=== PATIENT | female | born 1975 | race Caucasian/White ===

== ENCOUNTER → 2016-06-08 | Outpatient (CLI) | payer OTHER ==
[~2016-06-08] MED LIST: ALBUTEROL MININEB NEB; AMOXICILLIN500 M1 PO; AUGMENTIN PO; BENTYL10 MG PO; BREO ELLIPTA 11 EACH INH; CARAFATE1 G PO; CLINDAMYCIN HC300 MG PO; DARVOCET-N 1001 TA1 PO; DETROL PO; FLONASE16 GM; GABAPENTIN600 MG PO; GRALISE600 MG PO; GUAIFENESIN400 M1 PO; HORIZANT600 MG PO; HYDROCODON-ACE1 EAC5 PO; HYDROCODONE/APA1 T16 PO; LEVAQUIN750 M1 PO; LIBRAX CAPSULE1 CA1 PO; LOMOTIL TABLET1 TAB; LORTAB 10-5001 EACH PO; MAG-OXIDE400 MG PO; MEDROL PO; MOBIC PO; MULTI VITAMIN1 EACH PO; ORUDIS75 M1 PO; PAROXETINE HCL40 M1 PO; PHENERGAN25 M1 DOB; PHENOL-SODIUM180 ML; PREDNISONE; PREDNISONE PO; PREVACID PO; SPIRIVA18 MCG INH; VITAMIN B122500 MCG PO; ZANAFLEX4 M1 PO; ZITHROMAX PO; ZYRTEC PO; mucinex PO
--- NOTE | ~2016-06-08 | US136 ---
[facility] A Service of [facility] & [facility] RADIOLOGY TEXT RESULTS PATIENT: ORAL DIETRICH LOCATION: [facility] : 73 UNIT #: [id number] AGE: [address]: NEO BETH MD SEX: F ORDER DR: [id number] [facility] [address] [place], [place] [address] [id number] O MR#: [id number] Acc #: [id number] NAME: ORAL DIETRICH : 1975 SEX: F STUDY DATE/TIME: 06/08/2016 6:59 UNIT: [facility] ROOM: STUDY DESCRIPTION: U/L [facility] Art Study [facility] Bil Attending Physician: Neo Beth M.D. Referring Physician: Neo Beth M.D. Ordering Physician: Physician Non-Staff Primary Care Physician: Judy Severino M.D. MEDICAL IMAGING REPORT This report is preliminary unless electronic signature is present EXAM Bilateral ankle to brachial indices 06/08/2016 HISTORY Claudication on the left. The patient is a smoker. TECHNIQUE Sequential pressures were obtained through both lower extremities and pulse volume recordings were generated. FINDINGS Patient's ankle-brachial indices were normal bilaterally measuring 1.10 at the dorsalis pedis artery on the right and 1.07 at the posterior tibial artery on the right. Ankle-brachial index at the posterior tibial artery on the left is 1.02 and at the dorsalis pedis artery on the left is 1.02. Patient's toe-brachial indices are also normal measuring 0.74 on the right and 0.79 on the left and pulse volume recordings appear unremarkable. IMPRESSION Normal bilateral ankle-brachial indices. Dictated by... Vee Akhtar M.D. THIS IS AN ELECTRONICALLY VERIFIED REPORT Vee Akhtar M.D. at 06/08/2016 4:44 PM BRADLEY/sonja TD: 06/08/2016 15:28 JOB #: [id number] MEDICAL IMAGING REPORT COPY
--- NOTE | ~2016-06-08 | NM19 ---
[facility] A Service of [facility] & [facility] RADIOLOGY TEXT RESULTS PATIENT: ORAL DIETRICH LOCATION: [facility] : 73 UNIT #: [id number] AGE: [address]: NEO BETH MD SEX: F ORDER DR: [id number] [facility] [address] [place], [place] [address] [id number] O MR#: [id number] Acc #: [id number] NAME: ORAL DIETRICH : 1975 SEX: F STUDY DATE/TIME: 06/08/2016 8:41 UNIT: [facility] ROOM: STUDY DESCRIPTION: DC Gastric Emptying Study Attending Physician: Neo Beth M.D. Referring Physician: Neo Beth M.D. Ordering Physician: Physician Non-Staff Primary Care Physician: Judy Severino M.D. MEDICAL IMAGING REPORT This report is preliminary unless electronic signature is present EXAM Gastric emptying scan, 06/08/2016 HISTORY Early satiety, epigastric pressure, palpable mass in the abdomen after meals, alternating constipation and diarrhea with nausea and vomiting. Symptoms since April 2016. FINDINGS The patient ingested 557 mcCi of technetium 99m tagged sulfur colloid in eggs. Images of the upper abdomen were obtained for 120 minutes. The gastric half-emptying time was calculated to be 105 minutes (normal is between 65 and 90 minutes). IMPRESSION Delayed gastric half emptying time of 105 minutes. Dictated by... Huey James M.D. THIS IS AN ELECTRONICALLY VERIFIED REPORT Huey James M.D. at 06/09/2016 8:07 AM Dee TD: 06/08/2016 13:16 JOB #: [id number] MEDICAL IMAGING REPORT COPY
== END | disposition home or self-care (01) ==
LOC: CNUC 06:37
DX: F17.200 Nicotine dependence, unspecified, uncomplicated (principal); M79.669 Pain in unspecified lower leg; R68.81 Early satiety; K30 Functional dyspepsia
CPT/HCPCS: 78264; 93922; A9541

== ENCOUNTER → 2016-06-10 | Outpatient (CLI) | payer OTHER ==
--- NOTE | ~2016-06-10 | NM22 ---
[facility] A Service of [facility] / [facility] RADIOLOGY TEXT RESULTS PATIENT: ORAL DIETRICH LOCATION: [facility] : 73 UNIT #: [id number] AGE: [address]: David Oliver MD SEX: F ORDER DR: [id number] [facility] [address] [place], [place] [address] [id number] O MR#: [id number] Acc #: [id number] NAME: ORAL DIETRICH : 1975 SEX: F STUDY DATE/TIME: 06/10/2016 14:45 UNIT: [facility] ROOM: STUDY DESCRIPTION: NH Hepatobiliary W GB Pharm Attending Physician: David Oliver M.D. Referring Physician: David Oliver M.D. Ordering Physician: David Oliver M.D. Primary Care Physician: Judy Severino M.D. MEDICAL IMAGING REPORT This report is preliminary unless electronic signature is present EXAM HIDA scan with Kinevac CCK 06/10/2016 HISTORY Epigastric abdominal pain after meals with nausea and constipation alternating with diarrhea since April 29, 2016. TECHNIQUE The patient received intravenous injection of 5.45 mCi of Tc-99m tagged Choletec for hepatobiliary imaging. 1 hour following the injection of the radiopharmaceutical, the patient received an intravenous injection of 1.9 mcg of Kinevac. FINDINGS There is homogeneous distribution of the radiotracer throughout the liver. Gallbladder activity was seen by 15 minutes post-injection of the radiopharmaceutical. Following Kinevac injection, the gallbladder ejection fraction was 82.5% (normal is greater than 30%). IMPRESSION Normal HIDA scan with gallbladder ejection fraction of 82.5%. Dictated by... Huey James M.D. THIS IS AN ELECTRONICALLY VERIFIED REPORT Huey James M.D. at 06/13/2016 8:14 AM KRT/pcl [facility] A Service [facility] RADIOLOGY TEXT RESULTS PATIENT: ORAL DIETRICH [id number] [birth year] UNIT #: [id number] AGE: [address]: David Oliver MD SEX: F ORDER DR: TD: 06/10/2016 22:31 JOB #: [id number] MEDICAL IMAGING REPORT COPY
== END | disposition home or self-care (01) ==
LOC: CNUC 13:00
DX: R10.9 Unspecified abdominal pain (principal)
CPT/HCPCS: 78227; A9537; J2805

== ENCOUNTER → 2016-06-29 | Day surgery (SDC) | payer OTHER ==
--- NOTE | ~2016-06-29 | OR ---
Unit #: [id number] #: [id number] Patient: ORAL DIETRICH [id number] [facility] [address] [place], [place] [address] [id number] O MR#: [id number] NAME: ORAL DIETRICH ROOM: Date of Procedure: 06/29/2016 Admission Date: 06/29/2016 Surgeon: David Oliver M.D. : 1975 Attending Physician: David Oliver M.D. Primary Care Physician: Aurora Hutson PROCEDURE OPERATIVE NOTE PROCEDURE PERFORMED EGD DESCRIPTION The patient was admitted to [facility], positively identified and transported to the endoscopy suite where, after appropriate monitoring and positioning, a bite block was placed and she was sedated by the nurse industrial ecologist. The endoscope was passed through the oral cavity in the esophagus. Under direct vision, we passed through the esophagus. The esophagus appeared normal on evaluation. GE junction was well demarcated. No hiatal hernia was appreciated. As I entered the stomach and insufflated, she had moderate to severe gastritis in the antrum and she had a superficial, benign appearing, gastric ulcer. I was able to pass through the pylorus without difficulty down to the second and third portion of duodenum. Duodenum and duodenal bulb were normal. When I came back in the stomach, a biopsy for CLOtest was taken and then a biopsy from the ulcer edge was taken for pathology. Because of persistent oozing from this biopsy site, hemoclips x2 were used to control the bleeding. On retroflexing the scope above the incisura, no other findings in the upper fundus or cardia were noted. Today, there was no retained food stuffs in the stomach. As we came back in a retrograde fashion, no other abnormalities were noted. The larynx was visualized and was normal. The patient tolerated the procedure well and was transport to recovery in stable condition. Findings were discussed with her . She is already on an acid nusrat so we going to add a course of Carafate as we await her biopsy results. Dictated by... Katherine Vuong/rosa TD: 06/29/2016 08:36 JOB #: [id number] Unit #: [id number] #: [id number] Patient: ORAL DIETRICH PROCEDURE OPERATIVE NOTE Page 1 of 1 X David Oliver MD PROCEDURE OPERATIVE NOTE
--- NOTE | ~2016-06-29 | HP ---
Unit #: [id number] #: [id number] Patient: ORAL FARLEY [id number] [address] [place], [place] [address] [id number] O MR#: [id number] NAME: ORAL FARLEY ROOM: Age: 41 Sex: F Admission Date: 06/29/2016 : 1975 Attending Physician: David Oliver M.D. Primary Care Physician: Aurora Hutson HISTORY AND PHYSICAL PRIMARY CARE PHYSICIAN [facility] HISTORY AND EXAM Ms. Farley is a 41-year-old female with multiple chronic medical conditions including COPD, tobacco abuse, chronic back pain, on multiple medications for her back pain. She presented to the office with complaints of chronic abdominal pain, particularly in the epigastrium and left upper quadrant, and occasionally the left lower quadrant. She was evaluated for diverticular disease by CT and other than moderate to severe hepatic steatosis, her CT scan was normal. Followup ultrasound showed no cholelithiasis and a HIDA scan showed an ejection fraction of 82.5%. Complete laboratory analysis includes serology for celiac disease and H. pylori was also normal. Previous EGD and colonoscopy did not reveal an etiology for chronic abdominal complaints. She continues to complain of severe left upper quadrant pain and diarrhea. Stool studies have been negative. We plan on repeating her EGD with the severity of her discomfort. She did, in the interim however, have a gastric emptying scan that did confirm that she has some delayed gastric emptying. I discussed with the patient at length eating more frequent smaller meals to minimize the symptoms from her gastroparesis. I am very reluctant, given the extensive medication list she is on, to add metoclopramide. PAST MEDICAL HISTORY 1. COPD. 2. Bronchitis. 3. Tobacco abuse. 4. Tonsillectomy. 5. Tubal ligation. 6. Hysterectomy. 7. She has had two children. 8. History of migraines. ALLERGIES She is allergic to penicillin and sulfa. MEDICATIONS Her current medications include: 1. Mobic. 2. Magnesium. 3. Vitamin B12. 4. Prevacid. 5. Multivitamins. 6. Zanaflex. Unit #: [id number] #: [id number] Patient: FARLEY,ORAL [place] 7. Paroxetine. 8. Detrol. 9. Spiriva. 10. Albuterol. 11. Breo Ellipta. 12. Librax. 13. Hydrocodone 10. 14. Gabapentin. 15. Phenergan. 16. She does have a nebulizer at home. FAMILY HISTORY Arthritis, stroke, COPD, hypertension, diabetes, heart disease. SOCIAL HISTORY Social alcohol drinker. One to two packs per day. . REVIEW OF SYSTEMS Denied hematemesis, hematochezia, melena. Has not had any weight loss. PHYSICAL EXAMINATION VITAL SIGNS: Temperature 97.8, pulse is 82 and regular, respirations 18, blood pressure 96/61. O2 sats 96% on room air. GENERAL: Awake, alert and oriented. HEENT: Unremarkable. CARDIAC: Regular rhythm. LUNGS: Clear. ABDOMEN: Soft. She has voluntary guarding in the left upper quadrant. No masses noted. EXTREMITIES: No edema. NEUROLOGICAL: Grossly intact. SKIN: No skin rashes or lesions. ASSESSMENT AND PLAN Patient with worsening and persistent left upper quadrant abdominal pain with associated nausea. However, she is able to eat and her weight is stable. She does have a known history of gastroparesis. Because of the persistent of her complaints and what she describes as increasing discomfort, we plan on repeating her EGD. Dictated by David Oliver M.D. LOYD/rosa TD: 06/29/2016 08:23 JOB #: [id number] Unit #: [id number] #: [id number] Patient: ORAL FARLEY HISTORY AND PHYSICAL Page 1 of 1 X David Oliver MD HISTORY AND PHYSICAL
== END | disposition home or self-care (01) ==
LOC: COPS 05:36
DX: K25.9 Gastric ulcer, unspecified as acute or chronic, without hemorrhage or perforation (principal); K29.50 Unspecified chronic gastritis without bleeding; K21.9 Gastro-esophageal reflux disease without esophagitis; J44.9 Chronic obstructive pulmonary disease, unspecified; F17.200 Nicotine dependence, unspecified, uncomplicated; Z88.0 Allergy status to penicillin; Z88.2 Allergy status to sulfonamides
CPT/HCPCS: 87077; 88305; 88312

== ENCOUNTER → 2016-08-22 | Outpatient (CLI) | payer OTHER ==
--- NOTE | ~2016-08-22 | MR113 ---
[facility] A Service of [facility] & [facility] RADIOLOGY TEXT RESULTS PATIENT: ORAL DIETRICH LOCATION: [facility] : 73 UNIT #: [id number] AGE: [address]: Fatou Barker APRN SEX: F ORDER DR: [id number] [facility] [address] [place], [place] [address] [id number] O MR#: [id number] Acc #: [id number] NAME: ORAL DIETRICH : 1975 SEX: F STUDY DATE/TIME: 08/22/2016 8:21 UNIT: [facility] ROOM: STUDY DESCRIPTION: MR Lumbar Wo Contrast Attending Physician: Fatou Barker A.P.R.N. Referring Physician: Fatou Barker A.P.R.N. Ordering Physician: Fatou Barker A.P.R.N. Primary Care Physician: Dana Hutson M.D. MRI CENTER REPORT This report is preliminary unless electronic signature is present. EXAM Lumbar spine MRI without contrast, 08/22/2016. PROCEDURE Routine unenhanced lumbar spine MRI. COMPARISON STUDIES CT lumbar spine dated 07/01/2015 and outside MRI dated 10/06/2014. CLINICAL HISTORY 10-year history of low back pain with left leg numbness, recent worsening. FINDINGS Alignment is normal and bone marrow signal is normal. The distal cord and conus are normal in position and appearance and the paraspinous tissues are normal. There is no substantial canal or foraminal stenosis at any level. There is some borderline foraminal narrowing bilaterally at 4-5, but the exam is otherwise unremarkable. Alignment and bone marrow signal are normal. The distal cord and conus are normal in position and appearance. IMPRESSION Essentially normal lumbar spine MRI. There may be borderline foraminal narrowing at 4-5 bilaterally due to some facet arthropathy, and there is some facet arthropathy at 5-1 but without canal or foraminal compromise. Dictated by... Jacob Josue M.D. THIS IS AN ELECTRONICALLY VERIFIED REPORT [facility] A Service of [facility] & [facility] RADIOLOGY TEXT RESULTS PATIENT: ORAL DIETRICH LOCATION: [facility] : 73 UNIT #: [id number] AGE: [address]: Fatou Barker APRN SEX: F ORDER DR: Jacob Josue M.D. at 08/24/2016 1:22 PM TEV/zachary TD: 08/22/2016 14:09 JOB #: [id number] MRI CENTER REPORT Page 1 of 1 COPY
== END | disposition home or self-care (01) ==
LOC: CMRI 08-17 08:00
DX: M51.36 Other intervertebral disc degeneration, lumbar region (principal); M46.96 Unspecified inflammatory spondylopathy, lumbar region
CPT/HCPCS: 72148